=== PATIENT | male | born 1960 | race Two or more races ===

== ENCOUNTER 2020-05-16 09:57 | Outpatient (CLI) | payer MEDICAID ==
[~2020-05-16] VITALS: Ht 162.6 cm; Wt 93.9 kg
[2020-05-16 10:26] VITALS: BP 120/76
--- NOTE | 2020-05-16 12:30 | Consultation ---
DATE OF CONSULTATION: 05/16/2020 CHIEF COMPLAINT: Referral for colonoscopy. PAST MEDICAL HISTORY: None. PAST SURGICAL HISTORY: Appendectomy. MEDICATIONS: None. FAMILY HISTORY: None. SOCIAL HISTORY: Denies any tobacco, alcohol, or drug abuse. ALLERGIES: No known allergies. REVIEW OF SYSTEMS: Negative. PHYSICAL EXAMINATION: VITAL SIGNS: Temperature 97.3, blood pressure 120/76, pulse 89, respirations 20. HEENT: Normocephalic and atraumatic. Sclerae anicteric. NECK: Supple. No evidence of obvious lymphadenopathy. CARDIOVASCULAR: Regular rate and rhythm. Plus S1 and S2. LUNGS: Clear to auscultation bilaterally. ABDOMEN: Positive bowel sounds. Soft and nontender. No rebound. No guarding. No peritoneal sign. EXTREMITIES: No cyanosis. No clubbing. No edema. ASSESSMENT AND PLAN: This is a 59-year-old male who apparently had a very poor colonoscopy in 2019. The another GI doctor basically did not want to do any more colonoscopies on him so he is here for us to reevaluate him. I explained to him, he said he took the prep the way it was prescribed to him and still was not clean so we are going to go ahead and give him two days clear liquid diet, day #1 magnesium citrate and day#2 GoLYTELY and the patient to be scheduled for repeat colonoscopy. Eleuterio Morrissey M.D. DR: Freddie JOB#: [id number] CC:
== END 2020-05-16 11:57 | disposition home or self-care (01) ==
LOC: PAN 09:57
DX: Z00.00 Encounter for general adult medical examination without abnormal findings (principal); Z90.89 Acquired absence of other organs
CPT/HCPCS: G0463